=== PATIENT | male | born 1940 | race Caucasian/White ===

== ENCOUNTER 2024-05-15 11:08 | Emergency (ER) | payer BC ==
--- OUTSIDE RECORDS SUMMARY | 2024-05-15 11:12 | XMS REPORT | Continuity of Care Document ---
Author Name Unknown Address [address] [facility] [address] [place] [address] [facility] Address [address] [facility] [address] [place] [address] Care Team Providers Care Computing Architect Name Role Phone Oscar Juarez MD Primary Care Physician [phone] CAR PEARSON Attending Clinician Unavail able CAR PEARSON Attending Clinician Unavail able ALEX MAN Attending Clinician Unavail able Selbst DPMAlex Attending Clinician +- [phone] Car Pearson MD Attending Clinician [phone] Doctor Unassigned, [facility] Attending Clinician U soumyaailmattie Santamaria Attending Clinician Unavailable MORGAN CASAS Attending Clinician Morgan Desir MD Attending Clinician +- [phone] Beatriz Ramos MD Attending Clinician [phone] BEATRIZ RAMOS Attending Clinician UnavailBEATRIZ Lee Attending Clinician Pratik Santamaria Admitting Clinician Unavailable MORGAN CASAS Admitting Clinician Morgan Desir MD Admitting Clinician +- [phone] Payers Payer Name Policy Type Policy Number Effective Date Expirati on Date Source MEDICARE PART A \\T\\ B [id number] 2007 00:00:00 BRITNEY [id number] 2007 00:00:00 MEDICARE PART A AND B Medicare [id number] 2023 00:00:00 BRITNEY Wilson [id number] 2023 00:00:00 [place]: [employer] [id number] 2007 00:00:00 WEB TPA (MEDICARE SUPPLEMENT) [id number] [employer]LEEN PRITCHARD [id number] 2022 00:00:00 Problems Condition Name Condition Details Condition Category Status Onset Date Resolution Date Last Treatment Date Treating Clinician Comments Source Hyperlipid emia Hyperlipid emia Problem Active 06-07 00:00: 00 [facility] Tremor Tremor Problem Active 06-07 00:00: 00 [facility] History of cerebrovas cular accident History of Cerebrovas cular Accident Problem Active 06-07 00:00: 00 [facility] Chronic kidney disease stage 3A Chronic Kidney Disease Stage 3a Problem Active 12-08 00:00: 00 [facility] Overweight Overweight Problem Active 12-07 00:00: 00 [facility] Senile purpura Senile Purpura Problem Active 12-07 00:00: 00 [facility] Peripheral pulse absent Peripheral Pulse Absent Problem Active 12-07 00:00: 00 [facility] Obesity Obesity Problem Active 08-11 00:00: 00 [facility] Erectile dysfunctio n Erectile Dysfunctio n Problem Active 08-11 00:00: 00 [facility] Foot callus Foot Callus Problem Active 08-11 00:00: 00 [facility] 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 Problem Active 08-11 00:00: 00 [facility] Type 2 diabetes mellitus Type 2 Diabetes Mellitus Problem Active 08-11 00:00: 00 [facility] No known active problems No known active problems Disease [facility] Allergies, Adverse Reactions, Alerts Allergy Name Allergy Type Status Severity Reaction(s) Onset Date Inactive Date Treating Clinician Comments Source ALLERGIE S NOT ON FILE SYSTEMIC Active [facility] NO KNOWN ALLERGIE S Drug Class Active [facility] ALLERGIE S NOT ON FILE SYSTEMIC Active [facility] ALLERGIE S NOT ON FILE SYSTEMIC Active [facility]OUT Social History Social Habit Start Date Stop Date Quantity Comments Source History [facility]OH [facility] History SDOH Alcohol Binge [facility] History SDOH Alcohol Comment [facility] Gender identity Simon sydneydalila V[facility] Sexual orientation M emorironnell Maximiliano [facility] Tobacco use and exposure 2023-06-12 00:00:00 2023-06-12 00:00:00 Smokeless tobacco non-user [facility] Alcohol intake 2023-06-12 00:00:00 2023-06-12 00:00:00 Lifetime non-drinker (finding) [facility] History of Social function 2023-06-12 00:00:00 2023-06-12 00:00:[address] [facility] Exposure to SARS-CoV-2 (event) 2022-03-13 00:00:00 2022-03-23 13:03:[address] [facility] History SDOH Alcohol Frequency 2021-02-14 00:00:00 2021-02-14 00:00:[address] [facility] Sex Assigned At 1940 00:00:00 1940 00:00:[address] [facility] Smoking Status Start Date Stop Date Source Tobacco smoking consumption unknown [facility] Never smoked tobacco [facility] Medications Ordered Medication Name Filled Medication Name Start Date Stop Date Current Medication? Ordering Clinician Indication Dosage Frequency Signature (SIG) Comments Components Source empaglifloz in (JARDIANCE) 25 mg Tab tablet 06-11 15:13: 52 Yes 25mg Take 1 tablet by mouth in the morning. [facility] dulaglutide (TRULICITY) 3 mg/0.5 mL PnIj 06-11 15:13: 52 Yes inject under the skin. [facility] metFORMIN 1,000 mg tablet 06-11 15:12: 38 Yes 1000mg Take 1 tablet by mouth in the morning and 1 tablet in the evening. Take with meals. [facility] lactated ringers IV infusion 1,000 mL 2021-04 16:15: 00 03-29 19:01 :28 No 1000mL at 100 mL/hr, 1,000 mL, IV Infusion, CONTINUOUS , Starting on Sun03/29/22 at 1015, Until Sun03/29/22 at 1301, Routine, PACU [facility] ondansetron (ZOFRAN (PF)) injection 4 mg 2021-04 16:12: 32 03-29 19:01 :28 No 4mg 4 mg, Slow IV Push, PRN, 1 dose, Starting on Sun03/29/22 at 1012, Until Sun03/29/22 at 1301, Routine, Nausea and Vomiting (N/V), PACU [facility] lactated ringers IV infusion 1,000 mL 2021-04 15:00: 00 03-29 15:08 :00 No 1000mL at 42 mL/hr, 1,000 mL, IV Infusion, ONCE, 1 dose, On Sun03/29/22 at 0900, Routine, DSU Pre-op [facility] water for irrigation irrigation solution 2021-04 14:49: 00 03-29 16:13 :07 No PRN, Starting on Sun03/29/22 at 0849, Until Sun03/29/22 at 1013, Routine, Intra-op [facility] simethicone (GAS RELIEF (SIMETHICON E)) 40 mg/0.6 mL drops 2021-04 14:49: 00 03-29 16:13 :07 No PRN, Starting on Sun03/29/22 at 0849, Until Sun03/29/22 at 1013, Routine, Intra-op [facility] metFORMIN 1,000 mg tablet 2021-04 11:01: 24 Yes 1000mg Take 1,000 mg by mouth in the morning and 1,000 mg in the evening. Take with meals. [facility] atorvastati n 20 mg tablet 2020-04 0-05 00:00: 00 Yes TAKE ONE (1) TABLET(S) BY MOUTH ONCE A DAY IN THE EVENING. [facility] hydroCHLORO thiazide 25 mg tablet 2020-04 0- 00:00: 00 Yes 25mg Take 1 tablet by mouth in the morning. [facility] cephALEXin 500 mg capsule 916 00:00: 00 Yes TAKE ONE (1) CAPSULE(S) BY MOUTH EVERY TWELVE HOURS FOR 5 DAYS. [facility] naproxen 500 mg tablet 916 00:00: 00 Yes 500mg Take 1 tablet by mouth at bedtime. [facility] sildenafiL 100 mg tablet 828 00:00: 00 Yes TAKE ONE (1) TABLET(S) BY MOUTH EVERY DAY NEEDED. [facility] gabapentin 300 mg capsule 824 00:00: 00 Yes TAKE ONE (1) CAPSULE(S) BY MOUTH ONCE A DAY AT BEDTIME. [facility] allopurinol 300 mg tablet TAKE ONE (1) TABLET(S) BY MOUTH EVERY MORNING. allopurinol 300 mg tablet TAKE ONE (1) TABLET(S) BY MOUTH EVERY MORNING. No allopurino l 300 mg tablet TAKE ONE (1) TABLET(S) BY MOUTH EVERY MORNING. [facility] FreeStyle Pricila 2 Sensor kit USE DIRECTED DAILY BUT CHANGE EVERY 14 DAYS FreeStyle Pricila 2 Sensor kit USE DIRECTED DAILY BUT CHANGE EVERY 14 DAYS No FreeStyle Pricila 2 Sensor kit USE DIRECTED DAILY BUT CHANGE EVERY 14 DAYS [facility] inControl Pen Needle 32 gauge x 5/32" USE TO INJECT ONCE DAILY. inControl Pen Needle 32 gauge x 5/32" USE TO INJECT ONCE DAILY. No inControl Pen Needle 32 gauge x 5/32" USE TO INJECT ONCE DAILY. [facility] Jardiance 25 mg tablet Take 1 tablet every day by oral route for 30 days. Jardiance 25 mg tablet Take 1 tablet every day by oral route for 30 days. No 1 Q1D Jardiance 25 mg tablet Take 1 tablet every day by oral route for 30 days. [facility] Lumigan 0.01 % eye drops INSTILL ONE (1) DROP(S) IN EACH EYE AT BEDTIME. Lumigan 0.01 % eye drops INSTILL ONE (1) DROP(S) IN EACH EYE AT BEDTIME. No Lumigan 0.01 % eye drops INSTILL ONE (1) DROP(S) IN EACH EYE AT BEDTIME. [facility] prednisolon e acetate 1 % eye drops,suspe nsion INSTILL ONE (1) DROP INTO LEFT EYE FOUR TIMES DAILY X 1 WEEK THEN DECREASE BY ONE DROP EVERY WEEK. prednisolon e acetate 1 % eye drops,suspe nsion INSTILL ONE (1) DROP INTO LEFT EYE FOUR TIMES DAILY X 1 WEEK THEN DECREASE BY ONE DROP EVERY WEEK. No prednisolo ne acetate 1 % eye drops,susp ension INSTILL ONE (1) DROP INTO LEFT EYE FOUR TIMES DAILY X 1 WEEK THEN DECREASE BY ONE DROP EVERY WEEK. [facility] tadalafil 20 mg tablet TAKE ONE (1) TABLET BY MOUTH EVERY DAY NEEDED. tadalafil 20 mg tablet TAKE ONE (1) TABLET BY MOUTH EVERY DAY NEEDED. No tadalafil 20 mg tablet TAKE ONE (1) TABLET BY MOUTH EVERY DAY NEEDED. [facility] fluorouraci l 2 % topical solution APPLY TO SCALP AREA TWICE DAILY FOR THREE WEEKS. WASH HANDS AFTER EVERY APPLICATION . fluorouraci l 2 % topical solution APPLY TO SCALP AREA TWICE DAILY FOR THREE WEEKS. WASH HANDS AFTER EVERY APPLICATION . No fluorourac il 2 % topical solution APPLY TO SCALP AREA TWICE DAILY FOR THREE WEEKS. WASH HANDS AFTER EVERY APPLICATIO N. [facility] Sutab 1.479-0.188 -0.225 gram tablet TAKE DIRECTED BY PHYSICIAN. Sutab 1.479-0.188 -0.225 gram tablet TAKE DIRECTED BY PHYSICIAN. No Sutab 1.479-0.18 8-0.225 gram tablet TAKE DIRECTED BY PHYSICIAN. [facility] metformin 1,000 mg tablet TAKE ONE (1) TABLET(S) BY MOUTH TWICE A DAY WITH FOOD. metformin 1,000 mg tablet TAKE ONE (1) TABLET(S) BY MOUTH TWICE A DAY WITH FOOD. No 1 BID metformin 1,000 mg tablet TAKE ONE (1) TABLET(S) BY MOUTH TWICE A DAY WITH FOOD. [facility] FreeStyle Pricila 3 Sensor device USE DIRECTED DAILY, CHANGE EVERY 14 DAYS. FreeStyle Pricila 3 Sensor device USE DIRECTED DAILY, CHANGE EVERY 14 DAYS. No FreeStyle Pricila 3 Sensor device USE DIRECTED DAILY, CHANGE EVERY 14 DAYS. [facility] pregabalin 75 mg capsule Take 1 capsule twice a day by oral route for 30 days. pregabalin 75 mg capsule Take 1 capsule twice a day by oral route for 30 days. No 1capsul e(s) BID pregabalin 75 mg capsule Take 1 capsule twice a day by oral route for 30 days. [facility] Trulicity 4.5 mg/0.5 mL subcutaneou s pen injector INJECT 4.5 MG UNDER THE SKIN EVERY WEEK. Trulicity 4.5 mg/0.5 mL subcutaneou s pen injector INJECT 4.5 MG UNDER THE SKIN EVERY WEEK. No 4.5mg Q1W Trulicity 4.5 mg/0.5 mL subcutaneo us pen injector INJECT 4.5 MG UNDER THE SKIN EVERY WEEK. [facility] allopurinol 100 mg tablet TAKE ONE (1) TABLET(S) BY MOUTH DAILY. allopurinol 100 mg tablet TAKE ONE (1) TABLET(S) BY MOUTH DAILY. No allopurino l 100 mg tablet TAKE ONE (1) TABLET(S) BY MOUTH DAILY. [facility] atorvastati n 40 mg tablet TAKE ONE (1) TABLET(S) BY MOUTH ONCE A DAY. atorvastati n 40 mg tablet TAKE ONE (1) TABLET(S) BY MOUTH ONCE A DAY. No atorvastat in 40 mg tablet TAKE ONE (1) TABLET(S) BY MOUTH ONCE A DAY. [facility] colchicine 0.6 mg tablet TAKE TWO (2) TABLET(S) BY MOUTH NOW AND ONE TABLET IN AN HOUR THEN START TAKING ONE TABLET ONCE A DAY TOMMOROW UNTIL SYMPTOMS RESOLVE. colchicine 0.6 mg tablet TAKE TWO (2) TABLET(S) BY MOUTH NOW AND ONE TABLET IN AN HOUR THEN START TAKING ONE TABLET ONCE A DAY TOMMOROW UNTIL SYMPTOMS RESOLVE. No colchicine 0.6 mg tablet TAKE TWO (2) TABLET(S) BY MOUTH NOW AND ONE TABLET IN AN HOUR THEN START TAKING ONE TABLET ONCE A DAY TOMMOROW UNTIL SYMPTOMS RESOLVE. [facility] fluorouraci l 5 % topical solution APPLY TOPICALLY TO THE SCALP TWICE A DAY FOR 1 MONTH. fluorouraci l 5 % topical solution APPLY TOPICALLY TO THE SCALP TWICE A DAY FOR 1 MONTH. No fluorourac il 5 % topical solution APPLY TOPICALLY TO THE SCALP TWICE A DAY FOR 1 MONTH. [facility] folic acid 1 mg tablet TAKE ONE (1) TABLET(S) BY MOUTH DAILY. folic acid 1 mg tablet TAKE ONE (1) TABLET(S) BY MOUTH DAILY. No folic acid 1 mg tablet TAKE ONE (1) TABLET(S) BY MOUTH DAILY. [facility] lisinopril 5 mg tablet TAKE ONE (1) TABLET(S) BY MOUTH DAILY. lisinopril 5 mg tablet TAKE ONE (1) TABLET(S) BY MOUTH DAILY. No lisinopril 5 mg tablet TAKE ONE (1) TABLET(S) BY MOUTH DAILY. [facility] meloxicam 15 mg tablet TAKE ONE (1) TABLET(S) BY MOUTH DAILY WITH FOOD. meloxicam 15 mg tablet TAKE ONE (1) TABLET(S) BY MOUTH DAILY WITH FOOD. No meloxicam 15 mg tablet TAKE ONE (1) TABLET(S) BY MOUTH DAILY WITH FOOD. [facility] metformin 500 mg tablet Take 1 tablet twice a day by oral route with meal(s) for 90 days. metformin 500 mg tablet Take 1 tablet twice a day by oral route with meal(s) for 90 days. No 1 BID metformin 500 mg tablet Take 1 tablet twice a day by oral route with meal(s) for 90 days. [facility] Mounjaro 10 mg/0.5 mL subcutaneou s pen injector Inject 10 mg every week by subcutaneou s route for 30 days. Mounjaro 10 mg/0.5 mL subcutaneou s pen injector Inject 10 mg every week by subcutaneou s route for 30 days. No 10mg Q1W Mounjaro 10 mg/0.5 mL subcutaneo us pen injector Inject 10 mg every week by subcutaneo us route for 30 days. [facility] Mounjaro 12.5 mg/0.5 mL subcutaneou s pen injector Inject 12.5 mg every week by subcutaneou s route for 30 days. Mounjaro 12.5 mg/0.5 mL subcutaneou s pen injector Inject 12.5 mg every week by subcutaneou s route for 30 days. No 12.5mg Q1W Mounjaro 12.5 mg/0.5 mL subcutaneo us pen injector Inject 12.5 mg every week by subcutaneo us route for 30 days. [facility] Mounjaro 2.5 mg/0.5 mL subcutaneou s pen injector Inject 2.5 mg every week by subcutaneou s route for 30 days. Mounjaro 2.5 mg/0.5 mL subcutaneou s pen injector Inject 2.5 mg every week by subcutaneou s route for 30 days. No 2.5mg Q1W Mounjaro 2.5 mg/0.5 mL subcutaneo us pen injector Inject 2.5 mg every week by subcutaneo us route for 30 days. [facility] Mounjaro 5 mg/0.5 mL subcutaneou s pen injector Inject 5 mg every week by subcutaneou s route for 30 days. Mounjaro 5 mg/0.5 mL subcutaneou s pen injector Inject 5 mg every week by subcutaneou s route for 30 days. No 5mg Q1W Mounjaro 5 mg/0.5 mL subcutaneo us pen injector Inject 5 mg every week by subcutaneo us route for 30 days. [facility] Mounjaro 7.5 mg/0.5 mL subcutaneou s pen injector Inject 7.5 mg every week by subcutaneou s route for 30 days. Mounjaro 7.5 mg/0.5 mL subcutaneou s pen injector Inject 7.5 mg every week by subcutaneou s route for 30 days. No 7.5mg Q1W Mounjaro 7.5 mg/0.5 mL subcutaneo us pen injector Inject 7.5 mg every week by subcutaneo us route for 30 days. [facility] Pract[facility] e Immunizations Ordered Immunization Name Filled Immunization Name Date Status Comments Source influenza, high-dose, quadrivalent - ML influenza, high-dose, quadrivalent - ML Unknown Completed [facility] zoster recombinant - ML zoster recombinant - ML Unknown Completed [facility] COVID-19, mRNA, LNP-S, PF, 100 mcg/0.5 mL dose (Moderna) - ML COVID-19, mRNA, LNP-S, PF, 100 mcg/0.5 mL dose (Moderna) - ML Unknown Completed [facility] Vital Signs Vital Name Observation Time Observation Value Comments S ource BP Diastolic 2023-12-12 00:00:00 75 mm[Hg] [facility] BMI (Body Mass Index) 2023-12-12 00:00:00 27.9 kg/m2 [facility] ly Practice Height 2023-12-12 00:00:00 72 [in_i] [facility] BP Systolic 2023-12-12 00:00:00 121 mm[Hg] [facility] Body Weight 2023-12-12 00:00:00 206 [lb_av] [facility] Systolic blood pressure 2023-06-12 21:09:00 132 mm[Hg] [facility] Diastolic blood pressure 2023-06-12 21:09:00 72 mm[Hg] [facility] Heart rate 2023-06-12 21:09:00 69 /min [facility] Respiratory rate 2023-06-12 21:09:00 21 /min [facility] Body height 2023-06-12 21:09:00 182.9 cm [facility] Body weight 2023-06-12 21:09:00 94.802 kg [facility] BMI 2023-06-12 21:09:00 28.35 kg/m2 [facility] Oxygen saturation in Arterial blood by Pulse oximetry 2023-06-12 21:09:00 97 /min [facility] Height 2023-06-08 00:00:00 72 [in_i] [facility] BMI (Body Mass Index) 2023-06-08 00:00:00 28.4 kg/m2 [facility] Practice BP Diastolic 2023-06-08 00:00:00 76 mm[Hg] [facility] Body Weight 2023-06-08 00:00:00 209.6 [lb_av] [facility] BP Systolic 2023-06-08 00:00:00 121 mm[Hg] [facility] BP Diastolic 2022-12-07 00:00:00 73 mm[Hg] [facility] Height 2022-12-07 00:00:00 72 [in_i] [facility] BMI (Body Mass Index) 2022-12-07 00:00:00 28.5 kg/m2 [facility] Body Weight 2022-12-07 00:00:00 210 [lb_av] [facility] BP Systolic 2022-12-07 00:00:00 119 mm[Hg] [facility] BP Diastolic 2022-06-07 00:00:00 79 mm[Hg] [facility] Height 2022-06-07 00:00:00 72 [in_i] [facility] BMI (Body Mass Index) 2022-06-07 00:00:00 28.1 kg/m2 [facility] BP Systolic 2022-06-07 00:00:00 113 mm[Hg] [facility] Body Weight 2022-06-07 00:00:00 207.4 [lb_av] [facility] Systolic blood pressure 2022-03-29 16:39:00 117 mm[Hg] [facility] Diastolic blood pressure 2022-03-29 16:39:00 64 mm[Hg] [facility] Heart rate 2022-03-29 16:39:00 63 /min [facility] Respiratory rate 2022-03-29 16:39:00 18 /min [facility] Oxygen saturation in Arterial blood by Pulse oximetry 2022-03-29 16:39:00 98 /min [facility] Body temperature 2022-03-29 16:15:[address] [facility] Body height 2022-03-23 19:00:00 182.9 cm [facility] Body weight 2022-03-23 19:00:00 95.255 kg [facility] BMI 2022-03-23 19:00:00 28.48 kg/m2 [facility] Systolic blood pressure 2022-03-29 16:24:00 105 mm[Hg] [facility] Diastolic blood pressure 2022-03-29 16:24:00 58 mm[Hg] [facility] Heart rate 2022-03-29 16:24:00 74 /min [facility] Respiratory rate 2022-03-29 16:24:00 12 /min [facility] Oxygen saturation in Arterial blood by Pulse oximetry 2022-03-29 16:24:00 96 /min [facility] Body temperature 2022-03-29 16:15:[address] [facility] Body height 2022-03-23 19:00:00 182.9 cm [facility] Body weight 2022-03-23 19:00:00 95.255 kg [facility] BMI 2022-03-23 19:00:00 28.48 kg/m2 [facility] BP Diastolic 2021-12-05 00:00:00 76 mm[Hg] [facility] Height 2021-12-05 00:00:00 72 [in_i] [facility] BMI (Body Mass Index) 2021-12-05 00:00:00 30.9 kg/m2 [facility] BP Systolic 2021-12-05 00:00:00 125 mm[Hg] [facility] Body Weight 2021-12-05 00:00:00 228 [lb_av] [facility] BP Diastolic 2021-11-04 00:00:00 74 mm[Hg] [facility] Height 2021-11-04 00:00:00 72 [in_i] [facility] BMI (Body Mass Index) 2021-11-04 00:00:00 30.4 kg/m2 [facility] BP Systolic 2021-11-04 00:00:00 132 mm[Hg] [facility] Body Weight 2021-11-04 00:00:00 224 [lb_av] [facility] BP Diastolic 2021-09-19 00:00:00 79 mm[Hg] [facility] Height 2021-09-19 00:00:00 72 [in_i] [facility] BMI (Body Mass Index) 2021-09-19 00:00:00 29.8 kg/m2 [facility] BP Systolic 2021-09-19 00:00:00 125 mm[Hg] [facility] Body Weight 2021-09-19 00:00:00 220 [lb_av] [facility] BP Diastolic 2021-08-11 00:00:00 79 mm[Hg] [facility] Height 2021-08-11 00:00:00 72 [in_i] [facility] BMI (Body Mass Index) 2021-08-11 00:00:00 30.4 kg/m2 [facility] BP Systolic 2021-08-11 00:00:00 127 mm[Hg] [facility] Body Weight 2021-08-11 00:00:00 224 [lb_av] [facility] Body weight 2021-02-14 21:17:00 106.595 kg [facility] BMI 2021-02-14 21:17:00 31.00 kg/m2 [facility] Systolic blood pressure 2021-02-14 21:17:00 120 mm[Hg] [facility] Diastolic blood pressure 2021-02-14 21:17:00 78 mm[Hg] [facility] Body height 2021-02-14 21:17:00 185.4 cm [facility] Procedures Procedure Date / Time Performed Performing Clinician Source ASSIGNMENT OF BENEFITS 2023-06-12 20:57:51 Docto r Unassigned, Homeland [facility] COLONOSCOPY 2022-03-29 15:30:[address] [facility] COLONOSCOPY (ENDO) 2022-03-29 15:28:05 Dong Castro [facility] COLONOSCOPY (ENDO) 2022-03-29 15:28:05 Dong Castro [facility] POCT GLUCOSE(AGE >30DAYS) 2022-03-29 15:00:00 Morgan Casas [facility] POCT GLUCOSE(AGE >30DAYS) 2022-03-29 15:00:00 Morgan Casas [facility] PATIENT QUESTIONNAIRE 2022-03-29 06:01:00 Doctor Unassigned, Homeland [facility] EXTERNAL PROVIDER RECORDS 2022-01-31 05:01:00 Doctor Unassigned, Homeland [facility] EXTERNAL PROVIDER RECORDS 2022-01-31 05:01:00 Doctor Unassigned, Homeland [facility] Encounters Start Date/Time End Date/Time Encounter Type Admission Type Attending Clinicians Care Facility Care Department Encounter ID Source 2024-06-10 14:20:00 2024-06-10 14:20:00 Outpatient CAR FRAZIER HOWARD [facility] [id number] [facility] 2023-12-12 00:00:00 2023-12-12 00:00:00 Devin Gale MD: [id number], [address], [place] [address] , Ph. [facility] [place] - VM_HOU_[address] [place] [id number] [facility] 2023-09-12 09:41:53 2023-09-12 10:35:35 [facility] Elective [id number] 2023-09-12 09:30:00 2023-09-12 10:35:35 Consult [facility] 1..[id number] [id number] [facility] 2023-06-12 15:00:00 2023-06-12 17:13:56 Outpatient CAR FRAZIER HOWARD [facility] [id number] [facility] 2023-06-12 15:00:00 2023-06-12 17:13:56 Office Visit Car Pearson [facility] 1..[id number] [facility] 2023-06-12 00:00:00 2023-06-12 00:00:00 Orders Only Doctor Unassigned, Homeland [facility] 1..840.114 [id number] [facility] 2023-06-08 00:00:00 2023-06-08 00:00:00 Outpatient Daniel_T_HO U_MD VFP VFP [id number] [facility] 2023-06-08 00:00:00 2023-06-08 00:00:00 Devin Gale MD: [id number], [address] [address] , Ph. VFP [place] - [facility] - [place] - VM_HOU_[place] [id number] [facility] 2023-06-06 00:00:00 2023-06-06 00:00:00 Outpatient Daniel_T_HO U_MD VFP VFP [id number] [facility] 2023-02-28 00:00:00 2023-02-28 00:00:00 Outpatient Daniel_T_HO U_MD VFP VFP [id number] [facility] 2022-12-07 00:00:00 2022-12-07 00:00:00 Outpatient Daniel_T_HO U_MD VFP VFP [id number] [facility] 2022-12-07 00:00:00 2022-12-07 00:00:00 Outpatient Daniel_T_HO U_MD VFP VFP [id number] [facility] 2022-12-07 00:00:00 2022-12-07 00:00:00 Devin aGle MD: [id number], [address] [address] , Ph. VFP [facility] - [place] [id number] [facility] 2022-06-07 00:00:00 2022-06-07 00:00:00 Devin Gale MD: [id number], [address] [address] , Ph. VFP [facility] - [place] [id number] [facility] 2022-04-05 00:00:00 2022-04-05 00:00:00 Outpatient Daniel_T VFP VFP [id number] [facility] 2022-04-05 00:00:00 2022-04-05 00:00:00 Outpatient Daniel_T VFP VFP [id number] [facility] 2022-03-29 08:45:00 2022-03-29 10:50:00 Outpatient R [facility] [id number] [facility] 2022-03-29 08:45:00 2022-03-29 10:50:00 Hospital Encounter Morgan Rivers [facility] [id number] [facility] 2022-03-29 09:45:00 2022-03-29 10:26:00 Surgery Morgan Rivers [facility] [id number] [facility] 2022-03-29 00:00:00 2022-03-29 00:00:00 Orders Only Doctor Unassigned, [facility] [id number] [id number] [facility] 2022-02-28 00:00:00 2022-02-28 00:00:00 Outpatient Daniel_T VFP VFP [id number] [facility] 2021-12-13 00:00:00 2021-12-13 00:00:00 Outpatient Daniel_T VFP VFP [id number] [facility] 2021-12-07 00:00:00 2021-12-07 00:00:00 Outpatient Daniel_T VFP VFP [id number] [facility] 2021-12-05 00:00:00 2021-12-05 00:00:00 Outpatient Daniel_T VFP VFP [id number] [facility] 2021-12-05 00:00:00 2021-12-05 00:00:00 Devin Gale MD: [id number], [address], [place] [address] , Ph. VFP [place] - [facility] - [facility] [id number] [facility] 2021-11-23 00:00:00 2021-11-23 00:00:00 Outpatient Daniel_T VFP VFP [id number] [facility] 2021-11-04 00:00:00 2021-11-04 00:00:00 Outpatient Daniel_T VFP VFP [id number] [facility] 2021-11-04 00:00:00 2021-11-04 00:00:00 Devin aGle MD: [id number], [address] [address] , Ph. VFP [place] - [facility] - [facility] [id number] [facility] 2021-10-07 03:27:00 2021-10-07 03:27:00 Outpatient Daniel_T VFP VFP [id number] [facility] 2021-09-19 03:11:00 2021-09-19 03:11:00 Outpatient Daniel_T VFP VFP [id number] [facility] 2021-09-19 00:00:00 2021-09-19 00:00:00 Devin Gale MD: [id number], [address] [address] , Ph. VFP [place] - [facility] - [facility] [id number] [facility] 2021-09-14 02:04:00 2021-09-14 02:04:00 Outpatient Daniel_T VFP VFP [id number] [facility] 2021-09-03 07:40:00 2021-09-03 07:40:00 Outpatient Daniel_T VFP VFP [id number] [facility] 2021-08-11 04:06:00 2021-08-11 04:06:00 Outpatient Daniel_T VFP VFP [id number] [facility] 2021-08-11 00:00:00 2021-08-11 00:00:00 Devin Gale MD: [id number] [place] [facility], [address], [place] [address] , Ph. VFP [place] - [facility] - VM[facility]HOU[place] [id number] [facility] 2021-07-27 03:21:00 2021-07-27 03:21:00 Outpatient Daniel_T VFP VFP [id number] [facility] 2021-07-27 03:21:00 2021-07-27 03:21:00 Outpatient Daniel_T VFP VFP [id number] [facility] 2021-02-14 15:13:35 2021-02-14 15:55:58 Office Visit Beatriz Ramos [facility] [id number] [facility] 2021-02-14 15:00:00 2021-02-14 15:55:58 Outpatient R BEATRIZ RAMOS CRAIG [facility] [id number] [facility] Results Test Description Test Time Test Comments Results Result Co mments Source [facility] PracticeGlucose [Mass/volume] in Capillary [id number] 10:43:30* Test Item Value Reference Range Interpretation Comme nts Blood Glucose: mg/dl (test c ode = Blood Glucose: mg/dl) 86 [facility] [id number] 10:25:10* Test Item Value Reference Range Interpretation Comme nts Hemoglobin A1c/Hemoglobin.to christine in Blood (test code = 4548-4) 5.8 % 4.0-6.4 [facility] Family PracticeGlucose [Mass/volume] in Capillary [id number] 10:16:40* Test Item Value Reference Range Interpretation Comme nts Blood Glucose: mg/dl (test c ode = Blood Glucose: mg/dl) 122 [facility] [id number] 09:00:06* Test Item Value Reference Range Interpretation Comme nts Hemoglobin A1c/Hemoglobin.to christine in Blood (test code = 4548-4) 5.8 % 4.0-6.4 [facility] PracticeGlucose [Mass/volume] in Capillary [id number] 08:53:47* Test Item Value Reference Range Interpretation Comme nts Blood Glucose: mg/dl (test c ode = Blood Glucose: mg/dl) 120 [facility] [id number] 08:58:44* Test Item Value Reference Range Interpretation Comme [facility] Hemoglobin A1c/Hemoglobin.to christine in Blood (test code = 4548-4) 5.8 % 5.7-6.4 [facility] PracticeGlucose [Mass/volume] in Capillary [id number] 08:52:53* Test Item Value Reference Range Interpretation Comme nts Blood Glucose: mg/dl (test c ode = Blood Glucose: mg/dl) 131 [facility] PracticePOCT GLUCOSE(AGE >30DAYS)2022-03-29 15:00:00* Test Item Value Reference Range Interpretation Comme nts POCT Glu (age>30days) (test code = 3342) 97 mg/dL 70-[address] [facility] >30DAYS)2022-03-29 15:00:00* Test Item Value Reference Range Interpretation Comme nts POCT Glu (age>30days) (test code = 3342) 97 mg/dL 70-[address] [facility] device panel 2021-12-05 08:48:48* Test Item Value Reference Range Interpretation Comme [facility] Hemoglobin A1c/Hemoglobin.to christine in Blood (test code = 4548-4) 5.5 % 5.7-6.4 [facility] PracticeGlucose [Mass/volume] in Capillary [id number] 08:39:52* Test Item Value Reference Range Interpretation Comme nts Blood Glucose: mg/dl (test c ode = Blood Glucose: mg/dl) 103 [facility] PracticeGlucose [Mass/volume] in Capillary [id number] 08:13:19* Test Item Value Reference Range Interpretation Comme nts Blood Glucose: mg/dl (test c ode = Blood Glucose: mg/dl) 102 [facility] PracticeGlucose [Mass/volume] in Capillary [id number] 13:16:18* Test Item Value Reference Range Interpretation Comme nts Blood Glucose: mg/dl (test c ode = Blood Glucose: mg/dl) [facility] [id number] 00:00:00* Test Item Value Reference Range Interpretation Comme nts glutamic acid decarboxylase 65 Ab (test code = glutamic acid decarboxylase 65 Ab) <5 <5 ia-2 antibody (test code = i a-2 antibody) <5.4 <5.4 insulin autoantibody (test c ode = insulin autoantibody) <0.4 <0.4 [facility] peptide [Mass/volume] in Serum or [id number] 00:00:00* Test Item Value Reference Range Interpretation Comme nts C-peptide (test code = C-peptide) 1.46 NG/mL 0.80-3.85 [facility] [Mass/volume] in Capillary [id number] 13:33:57* Test Item Value Reference Range Interpretation Comme nts Blood Glucose: mg/dl (test c ode = Blood Glucose: mg/dl) 115 [facility] A1[facility] measurement device [id number] 13:33:47* Test Item Value Reference Range Interpretation Comme nts Hemoglobin A1C Fingerstick: (test code = Hemoglobin A1C Fingerstick:) 11.6 [facility]
[2024-05-15] MEDS ORDERED: CEFAZOLIN SODIUM 1 GM/VIAL ONE (12:29)
[2024-05-15] MEDS ORDERED: LIDOCAINE 2% W/EPI 1:200,000 MPF 20 ML VIAL IM ONE (12:29)
[2024-05-15] MEDS ORDERED: TDAP (DIPHTH,PERTUSS(ACELL),TET VAC) 0.5 ML VIAL IMVAC ONE (12:29)
[2024-05-15] MEDS ORDERED: NA CHLORIDE 0.9% 1,000 ML ONE (12:29)
[2024-05-15] MEDS ORDERED: NA CHLORIDE 0.9% 100 ML ONE (12:30)
--- NOTE | 2024-05-15 12:43 | RAD REPORT ---
EXAM: CT brain without contrast HISTORY: SYNCOPE COMPARISON: None TECHNIQUE: Multiple contiguous axial images were obtained and a CT of the brain without contrast. Sag ittal and coronal reformats were performed. FINDINGS: No evidence of hydrocephalus, intracranial hemorrhage, or extra-axial fluid collection. Right inferior cerebellar encephalomalacia, chronic in appearance, suggesting sequelae of remote isch emia. The brain is otherwise normal in morphology. The calvarium is intact. The visualized paranasal sinuses and mastoid air cells are essentially clear . IMPRESSION: No evidence of acute intracranial abnormality. Right inferior cerebellar region of encephalomalacia, suggesting sequelae of remote ischemia. EXAM: CT of the cervical spine without contrast HISTORY: SYNCOPE COMPARISON: None TECHNIQUE: Multiple contiguous axial images were obtained in a CT of the cervical spine without contr ast. Sagittal and coronal reformats were performed. FINDINGS: The vertebral bodies demonstrate normal height and alignment. No evidence of acute fracture or subluxation.. Multilevel degenerative changes most pronounced at C4-5, C5-6, and C6-7, with up to moderate degrees of neural foraminal narrowing bilaterally at those levels. No prevertebral soft tissue swelling is seen. The posterior facets are well aligned. Normal alignment of the skull base with the cervical spine is seen. The lung apices are unremarkable apart from right apical 5 mm calcified granuloma. IMPRESSION: No evidence of acute osseous abnormality of the cervical spine. Multilevel degenerative changes as above.
[2024-05-15 13:25] LABS: Absolute Eosinophils 0.3 K/uL (0-0.5); Absolute Lymphocytes (CBC) 2.8 K/uL (0.7-4.9); Basophils % 0.4 % (0-1.3); Eosinophils % 3.4 % (0-4.4); Hematocrit 43.6 % (39.6-49.0); Hemoglobin 15.1 g/dL (13.6-17.9); MCH 31.8 pg (27.0-35.0); MCHC 34.6 g/dL (32.0-36.0); MCV 91.8 fL (80-100); MPV 8.3 fL (7.6-11.3); Monocytes % 12.1 % (3.3-12.3); Neutrophils % 49.1 % (41.7-73.7); Platelets 254 thou/uL (152-406); RBC Red Blood Cell Count 4.75 M/uL (4.33-5.43); Red Cell Distribution Width 13.4 % (12.1-15.2)
[2024-05-15 13:31] LABS: PT Prothrombin Time 10.5 SECONDS (9.4-12.5)
[2024-05-15 13:45] LABS: ALT/SGPT 35 U/L (16-61); AST/SGOT 19 U/L (15-37); Albumin 3.9 g/dL (3.4-5.0); Albumin/Globulin Ratio 1.1 (1.1-1.8); Alkaline Phosphatase 77 U/L (45-117); Anion Gap 11.3 mEq/L (5.0-15.0); BUN Blood Urea Nitrogen 30 mg/dL (7-18); Bicarbonate 21 mEq/L (21-32); Bilirubin Total 0.6 mg/dL (0.2-1.0); Creatine Phosphokinase 190 U/L (39-308); Globulin 3.6 g/dL (2.3-3.5); Glomerular Filtration Rate 49 ml/min (=/>90); Glucose Level 98 mg/dL (74-106); Magnesium 2.2 mg/dL (1.6-2.4); NT PRO-BNP 150 pg/mL (<450); Potassium 4.3 mEq/L (3.5-5.1); Protein, Total 7.5 g/dL (6.4-8.2); Sodium Level 137 mEq/L (136-145); Troponin High Sensitivity 3.3 pg/mL (<58.9)
[2024-05-15 13:47] LABS: Bilirubin Direct < 0.2 mg/dL (0-0.2); Bilirubin Indirect, Calculated 0.4 mg/dL (0.2-0.8)
--- NOTE | 2024-05-15 13:57 | RAD REPORT ---
EXAMINATION: ONE VIEW CHEST XR CLINICAL INDICATION: Male, 83 years old.,COUGH TECHNIQUE: Frontal chest projection is submitted. Examination is limited by patient positioning and t echnique. COMPARISON: 07/20/2021 FINDINGS: The lungs are well inflated and clear. No pneumothorax or sizable effusion. The heart is normal in s ize. Mediastinal contours are unremarkable. IMPRESSION: No acute intrathoracic abnormalities.
--- NOTE | 2024-05-15 13:58 | RAD REPORT ---
EXAMINATION: XR FOREARM CLINICAL INDICATION: Male, 83 years old. [facility] MAIN PAIN Bed Name: TECHNIQUE: 2 view radiograph of the left forearm were obtained. . COMPARISON: No prior exam. FINDINGS: No evidence of fracture or dislocation. Normal alignment. Radiocarpal and thumb base degene rative changes. No evidence of joint effusion. No focal bone lesion. Soft tissues are unremarkable apart from vascular calcifications. IMPRESSION: No acute osseous abnormalities. Degenerative changes as above.
[2024-05-15] MEDS ORDERED: CEPHALEXIN 250 MG CAP ONE (14:03)
--- NOTE | 2024-05-15 14:17 | ER ---
Nurse's Notes [facility] Name: David Stanley Age: 83 yrs Sex: Male : 1940 Arrival Date: 05/15/2024 Time: 11:08 Bed 12 Private MD: Diagnosis: Fall on same level, unspecified;Laceration without foreign body of left forearm;Syncope Near;Bradycardia, unspecified;Unspecified kidney failure-insufficency Presentation: 05/15 12:10 Chief complaint: Patient states: passed out this morning about 3 am when getting back me1 into bed and has a laceration to left forearm. Coronavirus screen: Vaccine status: Patient reports receiving the 2nd dose of the covid vaccine. Ebola Screen: No symptoms or risks identified at this time. Initial Sepsis Screen: Does the patient meet any 2 criteria? No. Patient's initial sepsis screen is negative. Does the patient have a suspected source of infection? No. Patient's initial sepsis screen is negative. Risk Assessment: Do you want to hurt yourself or someone else? Patient reports no desire to harm self or others. Onset of symptoms was May 15, 2024 at 03:00. 12:10 Method Of Arrival: Ambulatory [facility] [place] 12:10 Acuity: LORENE 3 me1 Historical: - Allergies: 12:11 No Known Allergies; me1 - PMHx: 12:11 Diabetes mellitus; Cerebrovascular accident; me1 - PSHx: 12:11 umbilical hernia repair; Operative procedure on knee; me1 - Immunization history:: Adult Immunizations unknown. - Infectious Disease History:: Denies. - Social history:: Smoking status: Patient denies any tobacco usage or history of. Screenin:59 Abuse screen: Denies threats or abuse. Nutritional screening: No deficits noted. ap3 Tuberculosis screening: No symptoms or risk factors identified. Assessment: 13:35 General: Appears in no apparent distress. Behavior is calm, cooperative, appropriate ap3 for age. Pain: Complains of pain in left arm. Neuro: Level of Consciousness is awake, alert, obeys commands, Oriented to person, place, time, situation, Reports a syncopal episode. Cardiovascular: Patient's skin is warm and dry. Respiratory: Airway is patent Respiratory effort is even, unlabored, Respiratory pattern is regular, symmetrical. Injury Description: Laceration sustained to left arm is. 15:06 Reassessment: Patient is alert, oriented x 3, equal unlabored respirations, skin ap3 warm/dry/pink. 15:07 General: Appears comfortable. Neuro: Level of Consciousness is Oriented to. ap3 Vital Signs: 12:10 BP 169 / 85; Pulse 57; Resp 16; Temp 98.4; Pulse Ox 100% ; Weight 95.25 kg; Height 6 me1 ft. 0 in. ; Pain 6/10; 15:00 BP 152 / 68 Supine; Pulse 58; ap3 15:10 BP 164 / 81 Sitting; Pulse 57; ap3 15:18 BP 158 / 76 Standing; Pulse 68; ap3 12:10 Body Mass Index 28.48 (95.25 kg, 182.88 cm) me1 12:10 Pain Scale: Adult me1 ED Course: 11:13 Patient arrived in ED. al6 11:15 Obey Cary MD is Attending Physician. [facility] 12:11 Triage completed. me1 12:11 Arm band placed on Patient placed in an exam room. me1 12:30 CT Head C Spine In Process Unspecified. EDMS 12:38 María Aguilar, RN is Primary Nurse. ap3 13:21 Initial lab(s) drawn, by ct, sent to lab. EKG done, by ED staff, reviewed by Obey Cary MD. Inserted saline lock: 22 gauge in right antecubital area, using aseptic technique. Blood collected. Flushed with 10 mL NS. 13:28 XRAY Chest (1 view) In Process Unspecified. EDMS 13:28 Forearm Left XRAY In Process Unspecified. EDMS 13:59 Patient has correct armband on for positive identification. Bed in low position. Call ap3 light in reach. Side rails up X2. Adult w/ patient. Client placed on continuous cardiac and pulse oximetry monitoring. NIBP monitoring applied. case monitor on. Pulse ox on. NIBP on. 14:16 Oscar Juarez MD is Referral Physician. [place] Administered Medications: 13:20 Drug: Lidocaine-Epinephrine Infiltration -1%: (1:100,000) 10 ml 20 ml Infiltration ap3 once; to bedside {Note: by dr cary.} Volume: 20 ml; Route: Infiltration; 13:20 Drug: NS 0.9% IV 1000 ml IV at 1000 ml once; to be given as a bolus over 60 minutes ap3 Route: IV; Rate: 1000 ml; Site: right antecubital; 13:35 Drug: ceFAZolin IVPB 1 grams IVPB once Route: IVPB; Site: right antecubital; ap3 13:59 Follow up: IV Status: Completed infusion ap3 14:06 Drug: Cephalexin PO 500 mg PO once Route: PO; ap3 14:57 Follow up: Response: Medication administered at discharge. ap3 14:57 Drug: Vizcpkbl-Xftyrygzqs-Qeioqnbgl Topical Ointment 1 application Topical once Route: ap3 Topical; Site: affected area; 15:03 Drug: Boostrix Tdap IM 0.5 ml IM once; as a single dose Route: IM; Site: right deltoid; ap3 15:04 Follow up: Response: (VIS) Vaccine information sheet provided today. Questions and/or ap3 concerns addressed. VIS edition date: Nov 12, 2020. Outcome: 14:16 Discharge ordered by MD. talamantes 16:00 Patient left the ED. ap3 Signatures: Dispatcher [employer] EDObey Darling MD MD cha Prokisch, Amanda RN RN ap3 Jennifer Cordon, RN RN me1 Mary Spears al6
--- NOTE | 2024-05-15 14:17 | EDPHYS ---
Physician Documentation [facility] Name: David Stanley Age: 83 yrs Sex: Male : 1940 Arrival Date: 05/15/2024 Time: 11:08 Bed 12 Private MD: ED Physician Obey Cary HPI: 05/15 13:24 This 83 yrs old Male presents to ER via Ambulatory with complaints of [place] Laceration To Arm. 13:24 The patient has a laceration related to: unk. The laceration(s) is(are) located on the [place] dorsal aspect of left forearm. Onset: The symptoms/episode began/occurred last night. Associated signs and symptoms: The patient has no apparent associated signs or symptoms. The patient has not experienced similar symptoms in the past. Historical: - Allergies: 12:11 No Known Allergies; me1 - PMHx: 12:11 Diabetes mellitus; Cerebrovascular accident; me1 - PSHx: 12:11 umbilical hernia repair; Operative procedure on knee; me1 - Immunization history:: Adult Immunizations unknown. - Infectious Disease History:: Denies. - Social history:: Smoking status: Patient denies any tobacco usage or history of. ROS: 13:25 Constitutional: Negative for fever, chills, and weight loss, Eyes: Negative for injury, [place] pain, redness, and discharge, ENT: Negative for injury, pain, and discharge, Neck: Negative for injury, pain, and swelling, Cardiovascular: Negative for chest pain, palpitations, and edema, Respiratory: Negative for shortness of breath, cough, wheezing, and pleuritic chest pain, Abdomen/GI: Negative for abdominal pain, nausea, vomiting, diarrhea, and constipation, Back: Negative for injury and pain, : Negative for injury, bleeding, discharge, and swelling, Psych: Negative for depression, anxiety, suicide ideation, homicidal ideation, and hallucinations, Allergy/Immunology: Negative for hives, rash, and allergies, Endocrine: Negative for neck swelling, polydipsia, polyuria, polyphagia, and marked weight changes, Hematologic/Lymphatic: Negative for swollen nodes, abnormal bleeding, and unusual bruising, 13:25 MS/extremity: Positive for laceration, pain, of the dorsal aspect of left forearm and palmar aspect of left forearm, 13:25 Neuro: Positive for syncope, Exam: 13:25 Constitutional: This is a well developed, well nourished patient who is awake, alert, [place] and in no acute distress. Head/Face: Normocephalic, atraumatic. Eyes: Pupils equal round and reactive to light, extra-ocular motions intact. Lids and lashes normal. Conjunctiva and sclera are non-icteric and not injected. Cornea within normal limits. Periorbital areas with no swelling, redness, or edema. ENT: Nares patent. No nasal discharge, no septal abnormalities noted. Tympanic membranes are normal and external auditory canals are clear. Oropharynx with no redness, swelling, or masses, exudates, or evidence of obstruction, uvula midline. Mucous membranes moist. Neck: Trachea midline, no thyromegaly or masses palpated, and no cervical lymphadenopathy. Supple, full range of motion without nuchal rigidity, or vertebral point tenderness. No Meningismus. Chest/axilla: Normal chest wall appearance and motion. Nontender with no deformity. No lesions are appreciated. Cardiovascular: Regular rate and rhythm with a normal S1 and S2. No gallops, murmurs, or rubs. Normal PMI, no JVD. No pulse deficits. Respiratory: Lungs have equal breath sounds bilaterally, clear to auscultation and percussion. No rales, rhonchi or wheezes noted. No increased work of breathing, no retractions or nasal flaring. Abdomen/GI: Soft, non-tender, with normal bowel sounds. No distension or tympany. No guarding or rebound. No evidence of tenderness throughout. Back: No spinal tenderness. No costovertebral tenderness. Full range of motion. Male : Normal genitalia with no discharge or lesions. Skin: Warm, dry with normal turgor. Normal color with no rashes, no lesions, and no evidence of cellulitis. Neuro: Awake and alert, GCS 15, oriented to person, place, time, and situation. Cranial nerves II-XII grossly intact. Motor strength 5/5 in all extremities. Sensory grossly intact. Cerebellar exam normal. Normal gait. Psych: Awake, alert, with orientation to person, place and time. Behavior, mood, and affect are within normal limits. 13:25 Musculoskeletal/extremity: Extremities: grossly normal except: noted in the dorsal aspect of left forearm: laceration, ROM: no acute changes, full active range of motion, full passive range of motion, Circulation is intact in all extremities. Sensation intact. Compartment Syndrome exam of affected extremity: is normal. 13:35 ECG was reviewed by the Attending Physician. [facility] Vital Signs: 12:10 BP 169 / 85; Pulse 57; Resp 16; Temp 98.4; Pulse Ox 100% ; Weight 95.25 kg; Height 6 me1 ft. 0 in. ; Pain 6/10; 15:00 BP 152 / 68 Supine; Pulse 58; ap3 15:10 BP 164 / 81 Sitting; Pulse 57; ap3 15:18 BP 158 / 76 Standing; Pulse 68; ap3 12:10 Body Mass Index 28.48 (95.25 kg, 182.88 cm) mn1 12:10 Pain Scale: Adult me1 Laceration: 13:28 Wound Repair of 3.5cm ( 1.4in ) subcutaneous laceration to dorsal aspect of left [place] forearm. Irregularly shaped.. Distal neuro/vascular/tendon intact. Anesthesia: Local anesthetic administered with 8 mls of 1% lidocaine w/ Epi. Wound prep: Moderate cleansing, Copious irrigation. Skin closed with 3 4-0 Prolene using interrupted sutures and sterile technique. Dressed with Neosporin. Patient tolerated well. MDM: 11:15 Medical Screening Exam initiated [facility] 13:26 Differential diagnosis: abrasion, closed head injury, contusion, fracture, laceration, [place] multiple trauma, strain, aortic aneurysm, cardiac arrhythmia, cerebrovascular accident, drug effect, emotional response, GI bleed, idiopathic syncope, pseudo seizure, seizure, sepsis, transient ischemic attack, vasovagal episode. Differential diagnosis: superficial laceration, tendon injury, vascular injury. Data reviewed: vital signs, nurses notes, lab test result(s), EKG, radiologic studies, CT scan, plain films. Consideration of Admission/Observation Escalation of care including admission/observation considered. I considered the following discharge prescriptions or medication management in the emergency department Medications were administered in the Emergency Department. See MAR. Independent interpretation of the following test(s) in the Emergency Department EKG: See my EKG interpretation above. Test considered but Not performed: Ultrasound no 2 d echo. Historians other than the Patient: Daughter/Son: daughter well informed. Care significantly affected by the following chronic conditions: Diabetes, cva. 05/15 11:54 Order name: Basic Metabolic Panel; Complete Time: 14:15 [facility] 05/15 11:54 Order name: CBC with Diff; Complete Time: 14:15 [facility] 05/15 11:54 Order name: LFT's; Complete Time: 14:15 [facility] 05/15 11:54 Order name: Magnesium; Complete Time: 14:15 [facility] 05/15 11:54 Order name: NT PRO-BNP; Complete Time: 14:15 [facility] 05/15 11:54 Order name: PT-INR; Complete Time: 14:15 [facility] 05/15 11:54 Order name: Troponin HS; Complete Time: 14:15 [facility] 05/15 11:54 Order name: CPK; Complete Time: 14:15 [facility] 05/15 11:54 Order name: XRAY Chest (1 view); Complete Time: 14:15 [facility] 05/15 11:54 Order name: CT Head C Spine; Complete Time: 14:15 [facility] 05/15 12:03 Order name: Forearm Left XRAY; Complete Time: 14:15 [facility] 05/15 11:54 Order name: Cardiac monitoring; Complete Time: 13:20 [facility] 05/15 11:54 Order name: EKG - Nurse/Tech; Complete Time: 13:20 [facility] 05/15 11:54 Order name: IV Saline Lock; Complete Time: 13:20 [facility] 05/15 11:54 Order name: Labs collected and sent; Complete Time: 13:21 [facility] 05/15 11:54 Order name: O2 Per Protocol; Complete Time: 13:21 [facility] 05/15 11:54 Order name: O2 Sat Monitoring; Complete Time: 13:21 [facility] 05/15 11:54 Order name: Dressing - Wound; Complete Time: 13:20 [facility] 05/15 11:54 Order name: Gloves, Sterile; Complete Time: 13:20 [facility] 05/15 11:54 Order name: Prolene, Sutures; Complete Time: 13:20 [facility] 05/15 11:54 Order name: Setup Suture Tray; Complete Time: 12:32 [facility] 05/15 14:16 Order name: PO challenge; Complete Time: 14:57 [facility] 05/15 14:16 Order name: Orthostatics; Complete Time: 15:19 [place] EC:35 Rate is 59 beats/min. Rhythm is regular. QRS Stevenson is Normal. OR interval is prolonged [place] at 276 msec. QRS interval is normal. QT interval is normal. No Q waves. T waves are Normal. Clinical impression: 1st degree heart block, Sinus bradycardia, and No evidence of ischemia. Interpreted by me. Reviewed by me. Administered Medications: 13:20 Drug: Lidocaine-Epinephrine Infiltration -1%: (1:100,000) 10 ml 20 ml Infiltration ap3 once; to bedside {Note: by dr cary.} Volume: 20 ml; Route: Infiltration; 13:20 Drug: NS 0.9% IV 1000 ml IV at 1000 ml once; to be given as a bolus over 60 minutes ap3 Route: IV; Rate: 1000 ml; Site: right antecubital; 13:35 Drug: ceFAZolin IVPB 1 grams IVPB once Route: IVPB; Site: right antecubital; ap3 13:59 Follow up: IV Status: Completed infusion ap3 14:06 Drug: Cephalexin PO 500 mg PO once Route: PO; ap3 14:57 Follow up: Response: Medication administered at discharge. ap3 14:57 Drug: Mvdvvyef-Sztzshermd-Zjywihrjk Topical Ointment 1 application Topical once Route: ap3 Topical; Site: affected area; 15:03 Drug: Boostrix Tdap IM 0.5 ml IM once; as a single dose Route: IM; Site: right deltoid; ap3 15:04 Follow up: Response: (VIS) Vaccine information sheet provided today. Questions and/or ap3 concerns addressed. VIS edition date: Nov 12, 2020. Disposition Summary: 05/15/24 14:16 Discharge Ordered Notes: Location: Home [place] Problem: new [place] Symptoms: have improved [place] Condition: Stable [place] Diagnosis - Fall on same level, unspecified [place] - Laceration without foreign body of left forearm [place] - Syncope Near [place] - Bradycardia, unspecified [place] - Unspecified kidney failure - insufficency [place] Followup: [place] - With: Private Physician - When: 2 - 3 days - Reason: Recheck today's complaints, Continuance of care, Re-evaluation by your physician Followup: [place] - With: Oscar Juarez MD - When: 2 - 3 days - Reason: Recheck today's complaints, Re-evaluation by your physician Discharge Instructions: - Discharge Summary Sheet [place] - Bradycardia, Adult [place] - Laceration Care, Adult [place] - Near-Syncope [place] - Syncope [place] - Near-Syncope, [id number] [place] - Laceration Care, Adult, [id number] [place] - Acute Kidney Injury, Adult [place] - Chronic Kidney Disease, Adult, [id number] [facility] Forms: - Medication Reconciliation Form [place] - Antibiotic Education [place] - Prescription Opioid Use [place] - Patient Portal Instructions [facility] - Leadership Thank You Letter [facility] Prescriptions: - Centany 2 % Topical ointment - apply 1 application TOPICAL route 3 times per day; 30 gram; Refills: 0, Product [facility] Selection Permitted - Cephalexin 500 mg Oral Capsule - take 1 capsule ORAL route every 6 hours for 10 days; 40 capsule; Refills: 0, [facility] Product Selection Permitted Signatures: Dispatcher [employer] EDMS Obey Cary MD MD cha Prokisch, Amanda RN RN ap3 Jennifer Cordon RN RN me1 Corrections: (The following items were deleted from the chart) 11:54 11:54 BASIC METABOLIC PANEL+C.LAB.BRZ ordered. EDMS EDMS 11:54 11:54 CBC+H.LAB.BRZ ordered. EDMS EDMS 11:54 11:54 HEPATIC FUNCTION+C.LAB.BRZ ordered. EDMS EDMS 11:54 11:54 MAGNESIUM+C.LAB.BRZ ordered. EDMS EDMS 11:54 11:54 PROBNP+C.LAB.BRZ ordered. EDMS EDMS 11:54 11:54 PROTIME (+INR)+COAG.LAB.BRZ ordered. EDMS EDMS 11:54 11:54 Troponin High Sensitivity+C.LAB.BRZ ordered. EDMS EDMS 11:54 11:54 CREATINE PHOSPHOKINASE+C.LAB.BRZ ordered. EDMS EDMS 11:54 11:54 Chest Single View+RAD.RAD.BRZ ordered. EDMS EDMS 11:55 11:54 Head C Spine MPR Wo Con+CT.RAD.BRZ ordered. EDMS EDMS
[2024-05-15 16:30] VITALS: TEMP 98.4; O2SAT 100
[2024-05-15 16:42] VITALS: BP 158/76
--- NOTE | 2024-05-16 13:41 | EKG ---
Test Date: 2024-05-15 Test Time: 12:53:53 [employer]: [employer] MEASUREMENT RESULTS: Intervals: Rate: 59 UT: 276 QRSD: 88 QT: 442 QTc: 437 Garber: P: 44 UT: 276 QRS: 62 T: 43 INTERPRETIVE STATEMENTS: Sinus bradycardia with sinus arrhythmia with 1st degree AV block Otherwise normal ECG Compared to ECG 07/19/2006 10:42:17 Sinus rhythm no longer present Electronically Signed On 05-16-24 13:38:41 [employer] by Raman Wiley
== END 2024-05-15 16:00 | disposition home or self-care (01) ==
LOC: ER 11:08
DX: S51.812A Laceration without foreign body of left forearm, initial encounter (principal); R55 Syncope and collapse; R00.1 Bradycardia, unspecified; N28.9 Disorder of kidney and ureter, unspecified; W18.30XA Fall on same level, unspecified, initial encounter
CPT/HCPCS: 12002; 36415; 70450; 71045; 72125; 80048; 80076; 82550; 83735; 83880; 84484; 85025; 85610; 93005; 96365; 96372; 99285; J0690; J7030